=== PATIENT | female | born 1985 | race Caucasian/White ===

== ENCOUNTER 2019-10-02 10:52 | Emergency (ER) | payer MEDICAID ==
[~2019-10-02] VITALS: Ht 162.6 cm; Wt 77.3 kg
[2019-10-02] MEDS ORDERED: ACETAMINOPHEN 500 MG TABLET PO ONE (11:00)
[2019-10-02 12:41] VITALS: BP 103/61
== END 2019-10-02 12:47 | disposition home or self-care (01) ==
LOC: EMS 10:54
DX: U07.1 COVID-19 (principal); J12.89 Other viral pneumonia; G43.909 Migraine, unspecified, not intractable, without status migrainosus; F41.9 Anxiety disorder, unspecified; F17.210 Nicotine dependence, cigarettes, uncomplicated; Z88.5 Allergy status to narcotic agent
CPT/HCPCS: 87635

== ENCOUNTER 2020-02-11 11:05 | Day surgery (SDC) | payer MEDICAID ==
[~2020-02-11] VITALS: Ht 162.6 cm; Wt 80.9 kg
[~2020-02-11 11:05] MED LIST: SODIUM CHLORIDE 0.9% 1,000 ML IV ONE; SODIUM CHLORIDE 0.9% 1,000 ML ONE
[2020-02-11] MEDS ORDERED: LIDOCAINE/PF 2% 5 ML VIAL INJ ONE (12:00)
[2020-02-11] MEDS ORDERED: PROPOFOL 1% 20 ML VIAL IVP ONE (12:00)
== END 2020-02-11 14:10 | disposition home or self-care (01) ==
LOC: SURGERY 11:05
PROVIDERS: ATTEND Internal Medicine Gastroenterology
DX: K62.5 Hemorrhage of anus and rectum (principal); K63.5 Polyp of colon
CPT/HCPCS: 45385; 84703; 87426; C1769; J2704; J3490; J7030; 88305